=== PATIENT | female | born 1950 | race Caucasian/White ===

== ENCOUNTER → 2016-08-19 | Outpatient (REF) | payer OTHER | LOC: M LAB REF 12:08 | PROVIDERS: ATTEND Internal Medicine | DX: L40.59 Other psoriatic arthropathy (principal) ==

== ENCOUNTER → 2016-11-29 | Outpatient (REF) | payer BC | LOC: M LAB REF 12:09 | PROVIDERS: ATTEND Internal Medicine | DX: Z79.899 Other long term (current) drug therapy (principal) ==

== ENCOUNTER → 2017-10-07 | Outpatient (CLI) | payer BC | LOC: M WUC 19:22 | DX: S20.222A Contusion of left back wall of thorax, initial encounter (principal); X58.XXXA Exposure to other specified factors, initial encounter; Y92.89 Other specified places as the place of occurrence of the external cause | CPT/HCPCS: 71101 ==

== ENCOUNTER → 2018-05-14 | Outpatient (CLI) | payer MEDICARE, BC ==
[~2018-05-14] MED LIST: METHACHOLINE KIT (J7674) INH
== END ==
LOC: M CARPUL 07:39
DX: R05 Cough (principal)
CPT/HCPCS: J7674

== ENCOUNTER → 2018-10-12 | Outpatient (REF) | payer MEDICARE ==
[~2018-10-12] MED LIST changes: +ASPI81TA85 PO; +BUPR150T3 PO; +CALC600T57 PO; +CYCL10TA PO; +ESTR62CR PV; +FOLI5INJ2 PO; +HUMI40KI2 SC; +MELO15TA28 PO; +METH2.5T48 PO; -METHACHOLINE KIT (J7674) INH; +MULT1TAB10 PO; +SERT25TA PO; +SUDA1TAB3 PO; +TYLE650T35 PO; +VITA100067 PO; +VITA500C10 PO; +VITATAB11 PO
== END ==
LOC: M LAB REF 12:25
PROVIDERS: ATTEND Internal Medicine
DX: R20.0 Anesthesia of skin (principal)

== ENCOUNTER → 2019-03-26 | Outpatient (REF) | payer MEDICARE ==
[~2019-03-26] MED LIST changes: -SERT25TA PO; +SERT25TA85 PO
[2019-03-29 00:06] LABS: BETA 2 MICROGLOBULIN 1.8 mg/L (0.6-2.4); CARDIOLIPIN IGA ANTIBODY <9 APL U/mL (0-11); CARDIOLIPIN IGG ANTIBODY <9 GPL U/mL (0-14); CARDIOLIPIN IGM ANTIBODY <9 MPL U/mL (0-12)
[2019-03-30 10:24] LABS: PTT LUPUS TYPE ANTICOAG SCREEN 0.8 (0-1.2)
== END ==
LOC: M LAB REF 12:29
PROVIDERS: ATTEND Internal Medicine
DX: I63.50 Cerebral infarction due to unspecified occlusion or stenosis of unspecified cerebral artery (principal)

== ENCOUNTER → 2020-09-12 | Outpatient (REF) | payer OTHER ==
[~2020-09-12] MED LIST changes: +ACET650T61 PO; -ASPI81TA85 PO; +ASPI81TA86 PO; -BUPR150T3 PO; +BUPR150T4 PO; +CYCL-707 PO; -CYCL10TA PO; -TYLE650T35 PO
== END ==
LOC: M LAB REF 16:24
PROVIDERS: ATTEND Internal Medicine
DX: Z79.899 Other long term (current) drug therapy (principal); L40.59 Other psoriatic arthropathy

== ENCOUNTER → 2020-11-11 | Outpatient (REF) | payer OTHER ==
[~2020-11-11] MED LIST changes: +BUPR150T12 PO; -BUPR150T4 PO
== END ==
LOC: M LAB REF 17:46
PROVIDERS: ATTEND Physician Assistant
DX: R30.0 Dysuria (principal)

== ENCOUNTER → 2021-04-03 | Outpatient (REF) | payer OTHER | LOC: M LAB REF 16:28 | PROVIDERS: ATTEND Internal Medicine | DX: M54.2 Cervicalgia (principal) ==

== ENCOUNTER → 2021-05-18 | Outpatient (CLI) | payer OTHER ==
--- NOTE | 2021-05-18 15:50 | REPMRS ---
Patient History The patient states she has not had a clinical breast exam in over a year. Family history of ovarian cancer in mother, unknown cancer in brother. Taking estrogen for 2 months. No breast complaints today Patient signed the MRS sheet 1st covid vaccine 09/05/20-left arm-Moderna 2nd covid vaccine 10/04/20-left arm 3rd covid vaccine 04/10/21-right arm Patient states she has lost weight due to illness, not sure how much Priors done @ [facility] Patient Identification Verified Digital Woman Screen Mammo: May 18, 2021 - Exam #: [id number] Bilateral CC and MLO view(s) were taken. Technologist: Keily Mas, Technologist Prior study comparison: March 03, 2020, bilateral digital mammo screening bilat, performed at [facility]. February 15, 2019, bilateral digital mammo screening bilat, performed at [facility]. February 06, 2018, bilateral digital mammo screening bilat, performed at [facility]. FINDINGS: The breast tissue is heterogeneously dense. This may lower the sensitivity of mammography. The Volpara volumetric breast density category is: C. There is a moderate amount of heterogeneously dense fibroglandular tissue which is fairly symmetric. There is no interval development of dominant mass, architectural distortion, or grouped microcalcification typical of malignancy. There has been no change in the appearance of the mammogram from the prior studies. 3-D tomosynthesis shows no additional findings. Assessment: BI-RADS/ACR category 1 mammogram. Negative Mammogram. Recommendation Routine screening mammogram of both breasts in 1 year (for women over age 40). This patient's [facility] Lifetime Breast Cancer RIsk is estimated at 5.1 %. This mammogram was interpreted with the aid of an FDA-approved computer-aided dectection system. Electronically Signed By: Dale Mckeon MD 05/18/21 1308
--- NOTE | 2021-05-18 15:55 | DEXAMM ---
INDICATION: ENCTR SCREEN OSTEOPOROSIS. COMPARISON: February 15, 2019. TECHNIQUE: Bone density was measured using dual-energy x-ray absorptionmetry (DEXA). FINDINGS: AP SPINE L1-L4 BMD 1.095 g/cm2 Young Adult T-Score -0.7 Age Matched Z-Score 1.0. LT FEMUR, TOTAL BMD 0.834 g/cm2 Young Adult T-Score -1.4 Age Matched Z-Score 40.1. LT NECK BMD 0.824 g/cm2 Young Adult T-Score -1.5 Age Matched Z-Score 0.1. RT FEMUR, TOTAL BMD 0.909 g/cm2 Young Adult T-Score -0.8 Age Matched Z-Score 0.7. RT NECK BMD 0.922 g/cm2 Young Adult T-Score -0.8 Age Matched Z-Score 0.8. IMPRESSION: There is low bone density of the spine. There is low bone density of the left hip. There is low bone density of the right hip. The density of the left hip has decreased 18.1% since the initial exam on February 14, 2010. The density of the left hip has decreased 7.5% since the most recent exam on February 15, 2019. The density of the right hip has decreased 11.6% since the initial exam on February 14, 2010. The density of the right hip has decreased 5.5% since the most recent exam on February 15, 2019. FOLLOW-UP: Recommendation for the next bone density exam: 2 years. <Electronically signed by Dale Mckeon > 05/18/21 [id number]
== END ==
LOC: M WHC 13:50
PROVIDERS: ATTEND Internal Medicine
DX: Z12.31 Encounter for screening mammogram for malignant neoplasm of breast (principal); M85.89 Other specified disorders of bone density and structure, multiple sites

== ENCOUNTER 2022-07-04 00:29 | Emergency (ER) | payer OTHER ==
[~2022-07-04] VITALS: Ht 170.2 cm; Wt 66.5 kg
[2022-07-04] MEDS ORDERED: CEVI1CAP PO (01:12)
[2022-07-04] MEDS ORDERED: DILT240C28 PO (01:12)
[2022-07-04] MEDS ORDERED: METH25IN12 SUBQ (01:12)
[2022-07-04] MEDS ORDERED: VENL75CA47 PO (01:12)
[2022-07-04] MEDS ORDERED: ROSU5TAB5 PO (01:12)
[2022-07-04] MEDS ORDERED: TOPI100T9 PO (01:13)
[2022-07-04] MEDS ORDERED: OMEP40CA5 PO (01:13)
[2022-07-04] MEDS ORDERED: RAMI1CAP24 PO (01:13)
[2022-07-04] MEDS ORDERED: TIZA2TA PO (01:13)
[2022-07-04] MEDS ORDERED: QUET1TAB17 PO (01:13)
[2022-07-04] MEDS ORDERED: diazePAM 10MG/2ML SYRINGE (J3360 PER 5MG) IV ONE (02:10)
[2022-07-04] MEDS ORDERED: diphenhydrAMINE 50MG/ML VIAL IV STA (02:24)
[2022-07-04] MEDS ORDERED: HALOPERIDOL 5MG/ML VIAL (J1630 PER 1) IV STA (02:24)
[2022-07-04 04:30] VITALS: BP 103/64
== END 2022-07-04 04:50 | disposition home or self-care (01) ==
LOC: M ED 00:29
DX: S00.03XA Contusion of scalp, initial encounter (principal); S13.4XXA Sprain of ligaments of cervical spine, initial encounter; W00.0XXA Fall on same level due to ice and snow, initial encounter; Z88.2 Allergy status to sulfonamides; Z86.73 Personal history of transient ischemic attack (TIA), and cerebral infarction without residual deficits; Z79.82 Long term (current) use of aspirin; Z79.01 Long term (current) use of anticoagulants; Y92.009 Unspecified place in unspecified non-institutional (private) residence as the place of occurrence of the external cause
CPT/HCPCS: 70450; 72125; 96374; 99284; J3360

== ENCOUNTER → 2022-08-09 | Outpatient (REF) | payer OTHER ==
[~2022-08-09] MED LIST changes: +CEVI1CAP PO; +DILT240C28 PO; +METH25IN12 SUBQ; +OMEP40CA5 PO; +QUET1TAB17 PO; +RAMI1CAP24 PO; +ROSU5TAB5 PO; +TIZA2TA PO; +TOPI100T9 PO; +VENL75CA47 PO
[2022-08-09 18:15] LABS: EOSINOPHILS 2 % (0-3); LYMPHOCYTES 19 % (16-44); MONOCYTES 4 % (0-5); NEUTROPHILS 72 % (28-66)
[2022-08-09 18:17] LABS: PLATELET ESTIMATE DECREASED (NORMAL)
== END ==
LOC: M LAB REF 16:17
PROVIDERS: ATTEND Internal Medicine
DX: D72.9 Disorder of white blood cells, unspecified (principal); L40.59 Other psoriatic arthropathy; M35.00 Sjogren syndrome, unspecified; Z79.899 Other long term (current) drug therapy

== ENCOUNTER → 2022-08-13 | Outpatient (REF) | payer OTHER ==
[2022-08-13 13:27] LABS: HEMATOCRIT 39.2 % (36.0-47.0); HEMOGLOBIN 13.2 g/dl (12.0-15.5); MEAN CORPUSCULAR HEMOGLOBIN 34.8 pg (27.0-33.0); MEAN CORPUSCULAR HGB CONC 33.7 g/dl (32.0-36.5); MEAN CORPUSCULAR VOLUME 103.4 fl (80.0-96.0); PLATELET COUNT, AUTOMATED 155 10^3/uL (150-450); RED BLOOD COUNT 3.79 10^6/uL (4.00-5.40); WHITE BLOOD COUNT 3.2 10^3/uL (4.0-10.0)
[2022-08-13 14:22] LABS: ANISOCYTOSIS 1+; EOSINOPHILS 1 % (0-3); LYMPHOCYTES 21 % (16-44); MONOCYTES 1 % (0-5); NEUTROPHILS 77 % (28-66); PLATELET ESTIMATE NORMAL (NORMAL)
== END ==
LOC: M LAB REF 12:29
PROVIDERS: ATTEND Internal Medicine
DX: D72.820 Lymphocytosis (symptomatic) (principal)

== ENCOUNTER → 2022-09-18 | Outpatient (REF) | payer OTHER | LOC: M LAB REF 16:25 | PROVIDERS: ATTEND Internal Medicine | DX: L40.59 Other psoriatic arthropathy (principal) ==

== ENCOUNTER → 2022-10-10 | Outpatient (REF) | payer OTHER | LOC: M LAB REF 16:17 | PROVIDERS: ATTEND Internal Medicine | DX: D72.819 Decreased white blood cell count, unspecified (principal); M06.9 Rheumatoid arthritis, unspecified ==

== ENCOUNTER → 2023-03-16 | Outpatient (REF) | payer MEDICARE, OTHER | LOC: M LAB REF 16:04 | DX: R19.7 Diarrhea, unspecified (principal) ==

== ENCOUNTER → 2023-03-19 | Outpatient (REF) | payer OTHER ==
[2023-03-19 16:39] LABS: C REACTIVE PROTEIN QUANTITATIV < 0.40 MG/DL (<1.0)
[2023-03-19 16:40] LABS: IMMUNOGLOBULIN A 297.4 MG/DL (40-350)
== END ==
LOC: M LAB REF 16:04
PROVIDERS: ATTEND Internal Medicine
DX: L40.50 Arthropathic psoriasis, unspecified (principal); M06.9 Rheumatoid arthritis, unspecified; K21.9 Gastro-esophageal reflux disease without esophagitis

== ENCOUNTER → 2023-03-20 | Outpatient (REF) | payer OTHER | LOC: M LAB REF 16:32 | PROVIDERS: ATTEND Internal Medicine | DX: R19.7 Diarrhea, unspecified (principal) ==

== ENCOUNTER → 2023-04-16 | Outpatient (CLI) | payer OTHER | LOC: M RAD 11:25 | PROVIDERS: ATTEND Internal Medicine | DX: M47.814 Spondylosis without myelopathy or radiculopathy, thoracic region (principal); M54.6 Pain in thoracic spine ==

== ENCOUNTER → 2023-07-02 | Day surgery (SDC) | payer OTHER ==
[~2023-07-02] VITALS: Ht 170.2 cm; Wt 61.2 kg
[~2023-07-02] MED LIST changes: +ASCO50TA PO; +ASPI-255 PO; +BUPR300T92 PO; +ESTR0.1C5 VG; +FOLI1TAB11 PO; +LEFL1TAB4 PO; +LIDOCAINE 2% 100MG/5ML SDV (FOR ANES.) As Ordered ONE; +NS 1,000 ML IV ONE; +REST0.05 OU; +SERO1TAB3 PO; +VENL37.52 PO; +VITATAB73 PO; +VITMTA PO; +XIID5DRO OU; +[UNRECOGNIZED DRUG - OTHER] OU; +propofoL 200 MG/20 ML VIAL As Ordered ONE
[2023-07-02 13:24] VITALS: BP 139/78; O2SAT 97
== END | disposition home or self-care (01) ==
LOC: M OPP 10:19
PROVIDERS: ATTEND Internal Medicine Gastroenterology
DX: K44.9 Diaphragmatic hernia without obstruction or gangrene (principal); K64.0 First degree hemorrhoids; K21.00 Gastro-esophageal reflux disease with esophagitis, without bleeding; I48.91 Unspecified atrial fibrillation; I10 Essential (primary) hypertension; E78.00 Pure hypercholesterolemia, unspecified; M10.9 Gout, unspecified; Z79.899 Other long term (current) drug therapy; Z79.82 Long term (current) use of aspirin; Z88.2 Allergy status to sulfonamides; Z90.710 Acquired absence of both cervix and uterus

== ENCOUNTER → 2023-07-08 | Outpatient (CLI) | payer OTHER ==
[~2023-07-08] MED LIST changes: +LIDOCAINE 1% MDV 20ML VIAL As Ordered ONE; -LIDOCAINE 2% 100MG/5ML SDV (FOR ANES.) As Ordered ONE; -NS 1,000 ML IV ONE; +OMEG10002 PO; -propofoL 200 MG/20 ML VIAL As Ordered ONE
[2023-07-08 12:10] VITALS: TEMP 97.5
[2023-07-08 12:36] LABS: BASO % 1.1 % (0.0-1.0); EOS # 0.3 10^3/uL (0.0-0.5); EOS % 7.7 % (0.0-3.0); HEMATOCRIT 41.9 % (36.0-47.0); LYMPH # 1.7 10^3/uL (1.5-5.0); LYMPH % 45.1 % (24.0-44.0); MEAN CORPUSCULAR HEMOGLOBIN 35.1 pg (27.0-33.0); MEAN CORPUSCULAR HGB CONC 33.4 g/dl (32.0-36.5); MONO # 0.5 10^3/uL (0.0-0.8); MONO % 12.8 % (2.0-8.0); NEUTROPHILS # 1.2 10^3/uL (1.5-8.5); NEUTROPHILS % 33.3 % (36.0-66.0); PLATELET COUNT, AUTOMATED 165 10^3/uL (150-450); RED BLOOD COUNT 3.99 10^6/uL (4.00-5.40); WHITE BLOOD COUNT 3.7 10^3/uL (4.0-10.0)
[2023-07-08 13:10] VITALS: BP 134/72; O2SAT 96
== END ==
LOC: M IRPRO 11:55
PROVIDERS: ATTEND Internal Medicine Medical Oncology
DX: D70.9 Neutropenia, unspecified (principal)

== ENCOUNTER → 2023-09-23 | Outpatient (CLI) | payer OTHER ==
[~2023-09-23] MED LIST changes: -LEFL1TAB4 PO; +LEFL20TA15 PO; +THERTAB19 PO
[2023-09-23 07:45] VITALS: TEMP 97.2
[2023-09-23 08:30] LABS: BASO % 1.2 % (0.0-1.0); EOS # 0.2 10^3/uL (0.0-0.5); EOS % 9.8 % (0.0-3.0); HEMATOCRIT 39.1 % (36.0-47.0); HEMOGLOBIN 12.7 g/dl (12.0-15.5); LYMPH % 39.3 % (24.0-44.0); MEAN CORPUSCULAR HEMOGLOBIN 34.8 pg (27.0-33.0); MEAN CORPUSCULAR HGB CONC 32.5 g/dl (32.0-36.5); MEAN CORPUSCULAR VOLUME 107.1 fl (80.0-96.0); MONO # 0.4 10^3/uL (0.0-0.8); MONO % 17.2 % (2.0-8.0); NEUTROPHILS % 32.5 % (36.0-66.0); PLATELET COUNT, AUTOMATED 120 10^3/uL (150-450); RED BLOOD COUNT 3.65 10^6/uL (4.00-5.40); WHITE BLOOD COUNT 2.4 10^3/uL (4.0-10.0)
[2023-09-23 08:48] LABS: NEUTROPHILS # 0.8 10^3/uL (1.5-8.5)
[2023-09-23 08:57] LABS: INR 1.04; PROTHROMBIN TIME 13.3 SECONDS (12.5-14.5)
[2023-09-23 08:58] LABS: PARTIAL THROMBOPLASTIN TIME 26.5 SECONDS (24.8-34.2)
[2023-09-23 09:52] VITALS: BP 136/74; O2SAT 98
== END ==
LOC: M IRPRO 07:34
PROVIDERS: ATTEND Internal Medicine Hematology & Oncology
DX: D70.9 Neutropenia, unspecified (principal)

== ENCOUNTER → 2023-12-19 | Outpatient (REF) | payer OTHER ==
[~2023-12-19] MED LIST changes: +BUPR-597 PO; -BUPR300T92 PO; -LIDOCAINE 1% MDV 20ML VIAL As Ordered ONE; -RAMI1CAP24 PO; +RAMI5CAP60 PO; +ROSU5TAB40 PO; -ROSU5TAB5 PO
[2023-12-19 18:47] LABS: C REACTIVE PROTEIN QUANTITATIV < 0.40 MG/DL (<1.0)
[2023-12-19 18:49] LABS: IRON (FE) 99 UG/DL (50-170); PERCENT SATURATION 28.2 % (13.2-45.0); TOTAL IRON BINDING CAPACITY 351 UG/DL (250-425)
[2023-12-19 18:51] LABS: FERRITIN 78.8 NG/ML (7.3-270.7)
[2023-12-19 18:52] LABS: VITAMIN B12 LEVEL 270 PG/ML (211-911)
== END ==
LOC: M LAB REF 17:14
PROVIDERS: ATTEND Internal Medicine
DX: M06.9 Rheumatoid arthritis, unspecified (principal); D72.819 Decreased white blood cell count, unspecified; Z86.39 Personal history of other endocrine, nutritional and metabolic disease

== ENCOUNTER → 2024-05-19 | Outpatient (REF) | payer OTHER ==
[2024-05-19 14:19] LABS: PERCENT SATURATION 19.6 % (13.2-45.0)
[2024-05-19 14:20] LABS: FERRITIN 56.7 NG/ML (7.3-270.7)
== END ==
LOC: M LAB REF 13:04
PROVIDERS: ATTEND Internal Medicine
DX: M25.569 Pain in unspecified knee (principal)